=== PATIENT | male | born 1965 | race African-American/Black ===

== ENCOUNTER 2022-10-14 17:57 | Inpatient (IN) | payer SELFPAY ==
[2022-10-14 18:48] VITALS: BMI 28.4
[2022-10-14] MEDS ORDERED: BENZOCAINE/MENTHOL (CHLORASEPTIC ) LOZENGE MM PRN (22:13)
[2022-10-14] MEDS ORDERED: MAGNESIUM HYDROX 2400MG/30ML ORAL SUSPENSION 30 ML CUP PO PRN (22:13)
[2022-10-14] MEDS ORDERED: NICOTINE POLACRILEX 4 MG GUM BUC PRN (22:13)
[2022-10-14] MEDS ORDERED: LOPERAMIDE HCL 2 MG CAPSULE PO PRN (22:13)
[2022-10-14] MEDS ORDERED: POLYETHYLENE GLYCOL (HEALTHYLAX) 3350 17 GM PACKET PO PRN (22:13)
[2022-10-14] MEDS ORDERED: chlordiazePOXIDE HCL 25 MG CAPSULE PO PRN (22:13)
[2022-10-14] MEDS ORDERED: NALOXONE HCL (KLOXXADO) 8 MG SPRAY NS PRN (22:13)
[2022-10-14] MEDS ORDERED: BISMUTH SUBSALICYLATE 524 MG/30 ML PO PRN (22:13)
[2022-10-14] MEDS ORDERED: MAG HYDROX/AL HYDROX/SIMETH 30 ML UNIT-DOSE CUP PO PRN (22:13)
[2022-10-14] MEDS ORDERED: ACETAMINOPHEN 325 MG TABLET (FP) PO PRN ×2 (22:13)
[2022-10-14] MEDS ORDERED: DICYCLOMINE HCL 10 MG CAPSULE PO PRN (22:13)
[2022-10-14] MEDS ORDERED: ONDANSETRON *ODT* 4 MG TABLET SL PRN (22:13)
[2022-10-14] MEDS ORDERED: IBUPROFEN 400 MG TABLET (FP) PO PRN (22:13)
[2022-10-14] MEDS: chlordiazePOXIDE HCL 25 MG CAPSULE PO SCH (23:02)
[2022-10-14] MEDS ORDERED: chlordiazePOXIDE HCL 25 MG CAPSULE ONE (23:04)
[2022-10-15] MEDS: chlordiazePOXIDE HCL 25 MG CAPSULE PO SCH ×4 (07:23→22:44)
[2022-10-15] MEDS: AMOX TR/POT CLAV 875MG/125MG TABLETS (FP) PO SCH ×2 (09:00→17:32)
[2022-10-15] MEDS: BACITRACIN ZINC 15 GM TUBE TOPICAL OINTMENT TP SCH (10:42)
[2022-10-15] MEDS: PRENATAL VITAMINS W/ FOLIC ACID TABLET (FP) PO SCH (10:42)
[2022-10-15] MEDS: NICOTINE 21 MG/24 HOURS TOPICAL PATCH TD SCH (10:42)
[2022-10-15 11:23] LABS: HEMATOCRIT 38.4 % (35.4-49); HEMOGLOBIN 12.5 GM/dL (11.7-16.9); MCH 27.4 pg (25.7-33.7); MCHC 32.5 g/dl (32.0-35.9); MEAN CELL VOLUME 84.4 fl (80-96); MEAN PLT VOLUME 9.7 fl (7.5-11.1); PLATELET COUNT 163 10^3/uL (134-434); RBC 4.55 M/mm3 (4.00-5.60); RDW 15.1 % (11.9-15.9); WHITE BLOOD COUNT 7.5 K/mm3 (4.0-10.0)
[2022-10-15 11:52] LABS: ALBUMIN 3.3 g/dl (3.4-5.0); BLOOD UREA NITROGEN 23.3 mg/dL (7-18); CALCIUM 9.3 mg/dL (8.5-10.1)
[2022-10-15 11:55] LABS: CREATININE 0.9 mg/dL (0.55-1.3)
[2022-10-15 11:57] LABS: BILIRUBIN,TOTAL 0.2 mg/dL (0.2-1); TOT PROT 7.2 g/dl (6.4-8.2)
[2022-10-15] MEDS: THIAMINE HCL 100 MG TABLET (FP) PO SCH (22:44)
[2022-10-15] MEDS: MELATONIN 5 MG TABLETS PO SCH (22:44)
[2022-10-15] MEDS: IBUPROFEN 600 MG TABLET (FP) PO PRN (22:45)
[2022-10-16] MEDS: chlordiazePOXIDE HCL 25 MG CAPSULE PO SCH ×5 (05:45→22:47)
[2022-10-16] MEDS: AMOX TR/POT CLAV 875MG/125MG TABLETS (FP) PO SCH ×2 (07:21→18:09)
[2022-10-16] MEDS: PRENATAL VITAMINS W/ FOLIC ACID TABLET (FP) PO SCH (10:32)
[2022-10-16] MEDS: IBUPROFEN 600 MG TABLET (FP) PO PRN (10:33)
[2022-10-16] MEDS: BACITRACIN ZINC 15 GM TUBE TOPICAL OINTMENT TP SCH (10:34)
[2022-10-16] MEDS: NICOTINE 21 MG/24 HOURS TOPICAL PATCH TD SCH (10:34)
[2022-10-16] MEDS: LACTULOSE 20 GM/30 ML UDC (FOR ORAL USE ONLY) PO SCH ×2 (18:16→22:50)
[2022-10-16] MEDS: THIAMINE HCL 100 MG TABLET (FP) PO SCH (22:47)
[2022-10-16] MEDS: MELATONIN 5 MG TABLETS PO SCH (22:47)
[2022-10-17] MEDS ORDERED: chlordiazePOXIDE HCL 10 MG CAPSULE PO PRN
[2022-10-17] MEDS ORDERED: chlordiazePOXIDE HCL 10 MG CAPSULE PO SCH (05:00)
[2022-10-17 08:00] VITALS: BP 112/76; PULSE 76; RESP 18; TEMP 97.9
[2022-10-18] MEDS ORDERED: chlordiazePOXIDE HCL 10 MG CAPSULE PO SCH (05:00)
[2022-10-19] MEDS ORDERED: chlordiazePOXIDE HCL 10 MG CAPSULE PO ONE (05:00)
== END 2022-10-17 06:00 | disposition left against medical advice (07) | DRG 770 ==
LOC: YASAS 17:57 → Y6N 23:20
PROVIDERS: ADMIT Allergy & Immunology; ATTEND Surgery
PROC: HZ2ZZZZ Detoxification Services for Substance Abuse Treatment (ICD-10-PCS; principal; 2022-10-14)
DX: F10.230 Alcohol dependence with withdrawal, uncomplicated (principal); F14.10 Cocaine abuse, uncomplicated; F17.210 Nicotine dependence, cigarettes, uncomplicated; F31.9 Bipolar disorder, unspecified; F43.10 Post-traumatic stress disorder, unspecified; J45.20 Mild intermittent asthma, uncomplicated; R79.89 Other specified abnormal findings of blood chemistry; Z86.79 Personal history of other diseases of the circulatory system; Z56.0 Unemployment, unspecified; Z59.00 Homelessness unspecified
CPT/HCPCS: 36415; 80053; 82140; 85027; 86780; 87811; 93005; 93010; C9803-CS; U0003; U0005